=== PATIENT | female | born 1930 | race Caucasian/White ===

== ENCOUNTER 2020-09-01 16:32 | Inpatient (IN) | payer OTHER ==
[2020-09-01 16:47] VITALS: BMI 24.4
[2020-09-01] MEDS ORDERED: SODIUM CHLORIDE 0.9% 500 ML INFUS.BAG IV ONE (18:26)
[2020-09-01] MEDS ORDERED: CLINDAMYCIN 600MG PREMIX IVPB 600 MG/50 ML BAG IVPB ONE ×2 (18:45→19:25)
[2020-09-01 18:51] LABS: BASO % 0.4 % (0-2.0); EOS % 0.2 % (0-4.5); HEMATOCRIT 33.9 % (32.4-45.2); HEMOGLOBIN 10.6 GM/dL (10.7-15.3); LYMPH % 7.6 % (8-40); MCH 24.5 pg (25.7-33.7); MCHC 31.4 g/dl (32.0-36.0); MEAN CELL VOLUME 78.2 fl (80-96); MEAN PLT VOLUME 6.8 fl (7.5-11.1); NEUT % 78.8 % (42.8-82.8); PLATELET COUNT 346 10^3/uL (134-434); RBC 4.33 M/mm3 (3.60-5.2); RDW 16.9 % (11.6-15.6); WHITE BLOOD COUNT 9.8 K/mm3 (4.0-10.0)
[2020-09-01 19:03] LABS: INR 1.04 (0.83-1.09); PROTHROMBIN TIME (PATIENT) 12.6 SEC (9.7-13.0)
[2020-09-01 19:05] LABS: CHLORIDE 98 mmol/L (98-107); SODIUM 130 mmol/L (136-145)
[2020-09-01 19:06] LABS: ACTIVATED PTT 27.8 SECONDS (25.2-36.5)
[2020-09-01 19:08] LABS: ALBUMIN 2.8 g/dl (3.4-5.0); ANION GAP 11 MMOL/L (8-16); CALCIUM 8.7 mg/dL (8.5-10.1); CO2 20 mmol/L (21-32); GLUCOSE,RANDOM 114 mg/dL (74-106)
[2020-09-01 19:09] LABS: BLOOD UREA NITROGEN 38.9 mg/dL (7-18)
[2020-09-01 19:11] LABS: CREATININE 1.2 mg/dL (0.55-1.3); SGOT/AST 20 U/L (15-37); SGPT/ALT 21 U/L (13-61)
[2020-09-01 19:13] LABS: TOT PROT 6.9 g/dl (6.4-8.2)
[2020-09-01 19:14] LABS: ALK PHOS 141 U/L (45-117)
[2020-09-01] MEDS ORDERED: dilTIAZem HCL 50 MG/10 ML - 10 ML VIAL IVPUSH ONE (19:20)
[2020-09-01 19:23] LABS: BILIRUBIN,TOTAL 0.4 mg/dL (0.2-1)
[2020-09-01] MEDS ORDERED: dilTIAZem HCL 50 MG/10 ML - 10 ML VIAL ONE (19:25)
[2020-09-01] MEDS ORDERED: dilTIAZem HCL 30 MG TABLET PO ONE (19:43)
[2020-09-01 19:48] LABS: ERYTHROCYTE SEDIMENTATION RATE 62 mm/hr (0-30)
[2020-09-01] MEDS ORDERED: dilTIAZem HCL 30 MG TABLET ONE (20:04)
[2020-09-01] MEDS ORDERED: ACETAMINOPHEN INJECTION 100 ML IVPB ONE (21:01)
[2020-09-01] MEDS ORDERED: ACETAMINOPHEN 1000 MG/100 ML VIAL (NON FORMULARY) IVPB ONE (21:09)
[2020-09-01] MEDS ORDERED: MORPHINE SULFATE 2 MG/ML VIAL IVPUSH ONE (21:50)
[2020-09-01] MEDS: ZINC OXIDE/PANTHENOL/VITAMIN E 56 GM TUBE TP SCH (22:07)
[2020-09-01] MEDS ORDERED: MORPHINE SULFATE 2 MG/ML VIAL ONE ×2 (22:09→22:23)
[2020-09-01] MEDS ORDERED: morphine CARPU-JECT 2 MG/1 ML DISP.SYRIN IVPUSH ONE (22:20)
[2020-09-01] MEDS ORDERED: LORazepam 2 MG/ML SDV VIAL IVPUSH ONE (22:42)
[2020-09-01] MEDS ORDERED: SODIUM CHLORIDE 1,000 ML IV SCH (22:45)
[2020-09-01] MEDS ORDERED: LORazepam 2 MG/ML SDV VIAL ONE (22:46)
[2020-09-01 23:45] LABS: MAGNESIUM 2.5 mg/dL (1.8-2.4)
[2020-09-02] MEDS: APIXABAN 2.5 MG TABLET PO SCH ×3 (00:21→22:53)
[2020-09-02] MEDS: dilTIAZem HCL 30 MG TABLET PO SCH ×4 (00:22→17:12)
[2020-09-02] MEDS: VANCOMYCIN 1 GRAM (PRE-DOCKED) 1,000 MG/250 ML BAG IVPB SCH ×2 (00:22→12:07)
[2020-09-02] MEDS ORDERED: dilTIAZem HCL 30 MG TABLET PO SCH (06:00)
[2020-09-02] MEDS: INSULIN SLIDING SCALE (NOVOLOG) 1 VIAL SQ SCH ×4 (06:13→22:57)
[2020-09-02 08:25] LABS: HEMATOCRIT 32.3 % (32.4-45.2); HEMOGLOBIN 9.9 GM/dL (10.7-15.3); MCH 24.6 pg (25.7-33.7); MCHC 30.8 g/dl (32.0-36.0); MEAN CELL VOLUME 79.8 fl (80-96); MEAN PLT VOLUME 7.1 fl (7.5-11.1); PLATELET COUNT 303 10^3/uL (134-434); RBC 4.04 M/mm3 (3.60-5.2); RDW 16.6 % (11.6-15.6); WHITE BLOOD COUNT 9.1 K/mm3 (4.0-10.0)
[2020-09-02 08:52] LABS: CALCIUM 7.9 mg/dL (8.5-10.1)
[2020-09-02 08:53] LABS: ALBUMIN 2.3 g/dl (3.4-5.0); BLOOD UREA NITROGEN 41.8 mg/dL (7-18); MAGNESIUM 2.5 mg/dL (1.8-2.4)
[2020-09-02 08:56] LABS: CHOLESTEROL 105 mg/dL (50-200); CREATININE 1.3 mg/dL (0.55-1.3); LDL CHOLESTEROL (ONLY SJRH) 35 mg/dL (5-100); PHOSPHOROUS 3.2 mg/dL (2.5-4.9); TOT PROT 5.6 g/dl (6.4-8.2); TRIGLYCERIDES 73 mg/dL (0-150)
[2020-09-02 08:59] LABS: HDL CHOLESTEROL 50 mg/dL (40-60)
[2020-09-02 09:03] LABS: BILIRUBIN,TOTAL 0.8 mg/dL (0.2-1)
[2020-09-02] MEDS: DOCUSATE SODIUM 100 MG CAPSULE (FP) PO SCH ×2 (09:09→22:53)
[2020-09-02] MEDS: PANTOPRAZOLE 40 MG TABLET PO SCH (09:09)
[2020-09-02] MEDS: FERROUS SO4 325 MG TABLET (FP) PO SCH (09:09)
[2020-09-02] MEDS ORDERED: FERROUS SO4 325 MG TABLET (FP) PO SCH ×2 (10:00)
[2020-09-02 10:23] LABS: PREALBUMIN 12.3 mg/dl (20-40)
[2020-09-02] MEDS ORDERED: PT OWN MED DRAWER 7, Y5N ONE ×2 (11:06→13:38)
[2020-09-02] MEDS: ZINC OXIDE/PANTHENOL/VITAMIN E 56 GM TUBE TP SCH (12:41)
[2020-09-02] MEDS: ACETAMINOPHEN 1000 MG/100 ML VIAL (NON FORMULARY) IVPB PRN (12:42)
[2020-09-02] MEDS: SILVER SULFADIAZINE 1% TOP CREAM 400 GM JAR TP SCH (13:55)
[2020-09-02] MEDS: FUROSEMIDE 40 MG/4 ML INJECTABLE VIAL IVPUSH SCH (14:09)
[2020-09-02] MEDS ORDERED: PNEUMOC 13-VAL CONJ-DIP CRM/PF 0.5 ML DISP.SYRIN IM ONE (15:00)
[2020-09-02 17:30] LABS: URINE APPEARANCE CLOUDY; URINE BILIRUBIN NEGATIVE (NEGATIVE); URINE COLOR YELLOW; URINE GLUCOSE (UA) 3+ (NEGATIVE); URINE KETONE NEGATIVE (NEGATIVE); URINE LEUK ESTERASE NEGATIVE (NEGATIVE); URINE NITRITE NEGATIVE (NEGATIVE); URINE PROTEIN NEGATIVE (NEGATIVE); URINE UROBILINOGEN 0.2 mg/dL (0.2-1.0)
[2020-09-02] MEDS ORDERED: DEXTROSE 5%-WATER - 50 ML IVPB ONE (22:42)
[2020-09-02] MEDS ORDERED: ceFAZolin SODIUM 1 GM VIAL ONE (22:42)
[2020-09-02] MEDS: SENNOSIDES 8.6MG TABLET (FP) PO SCH (22:53)
[2020-09-02] MEDS: ATORVASTATIN CA 10 MG TABLET (FP) PO SCH (22:54)
[2020-09-02] MEDS: CEFAZOLIN 1 GM in DEXTROSE 5%-WATER - 1 GM/50 ML IVPB IVPB SCH (22:54)
[2020-09-02] MEDS ORDERED: VANCOMYCIN 1 GRAM (PRE-DOCKED) 1,000 MG/250 ML BAG IVPB SCH (23:30)
[2020-09-03] MEDS: dilTIAZem HCL 30 MG TABLET PO SCH ×2 (01:00→05:51)
[2020-09-03] MEDS: ACETAMINOPHEN 1000 MG/100 ML VIAL (NON FORMULARY) IVPB PRN (03:40)
[2020-09-03] MEDS: INSULIN SLIDING SCALE (NOVOLOG) 1 VIAL SQ SCH ×4 (06:10→22:32)
[2020-09-03 07:26] LABS: BASO % 0.3 % (0-2.0); EOS % 1.3 % (0-4.5); HEMATOCRIT 29.5 % (32.4-45.2); HEMOGLOBIN 9.5 GM/dL (10.7-15.3); LYMPH % 10.1 % (8-40); MCH 25.2 pg (25.7-33.7); MCHC 32.3 g/dl (32.0-36.0); MEAN CELL VOLUME 78.1 fl (80-96); MEAN PLT VOLUME 6.8 fl (7.5-11.1); MONO % 11.4 % (3.8-10.2); NEUT % 76.9 % (42.8-82.8); PLATELET COUNT 303 10^3/uL (134-434); RBC 3.77 M/mm3 (3.60-5.2); RDW 16.8 % (11.6-15.6); WHITE BLOOD COUNT 8.9 K/mm3 (4.0-10.0)
[2020-09-03 07:44] LABS: BLOOD UREA NITROGEN 31.2 mg/dL (7-18); CALCIUM 7.1 mg/dL (8.5-10.1); MAGNESIUM 2.4 mg/dL (1.8-2.4)
[2020-09-03] MEDS ORDERED: DEXTROSE 5%-WATER - 50 ML IVPB ONE ×2 (09:18→20:52)
[2020-09-03] MEDS ORDERED: ceFAZolin SODIUM 1 GM VIAL ONE ×2 (09:18→20:52)
[2020-09-03] MEDS: CEFAZOLIN 1 GM in DEXTROSE 5%-WATER - 1 GM/50 ML IVPB IVPB SCH ×2 (10:11→21:59)
[2020-09-03] MEDS: FUROSEMIDE 40 MG/4 ML INJECTABLE VIAL IVPUSH SCH (10:11)
[2020-09-03] MEDS: DOCUSATE SODIUM 100 MG CAPSULE (FP) PO SCH ×2 (10:12→22:00)
[2020-09-03] MEDS: FERROUS SO4 325 MG TABLET (FP) PO SCH (10:12)
[2020-09-03] MEDS: APIXABAN 2.5 MG TABLET PO SCH ×2 (10:12→22:00)
[2020-09-03] MEDS: PANTOPRAZOLE 40 MG TABLET PO SCH (10:12)
[2020-09-03] MEDS: SILVER SULFADIAZINE 1% TOP CREAM 400 GM JAR TP SCH (10:13)
[2020-09-03] MEDS: ZINC OXIDE/PANTHENOL/VITAMIN E 56 GM TUBE TP SCH (10:13)
[2020-09-03] MEDS ORDERED: oxyCODONE HCL 5 MG TABLET PO ONE (12:22)
[2020-09-03] MEDS: ATORVASTATIN CA 10 MG TABLET (FP) PO SCH (22:00)
[2020-09-03] MEDS: SENNOSIDES 8.6MG TABLET (FP) PO SCH (22:01)
[2020-09-04] MEDS ORDERED: oxyCODONE HCL 5 MG TABLET PO ONE (04:00)
[2020-09-04] MEDS: INSULIN SLIDING SCALE (NOVOLOG) 1 VIAL SQ SCH ×3 (07:03→16:51)
[2020-09-04 07:38] LABS: BASO % 0.7 % (0-2.0); EOS % 1.8 % (0-4.5); HEMATOCRIT 30.7 % (32.4-45.2); HEMOGLOBIN 9.6 GM/dL (10.7-15.3); LYMPH % 11.4 % (8-40); MCH 24.6 pg (25.7-33.7); MCHC 31.4 g/dl (32.0-36.0); MEAN CELL VOLUME 78.3 fl (80-96); MONO % 12.1 % (3.8-10.2); PLATELET COUNT 319 10^3/uL (134-434); RBC 3.91 M/mm3 (3.60-5.2); RDW 16.7 % (11.6-15.6); WHITE BLOOD COUNT 8.4 K/mm3 (4.0-10.0)
[2020-09-04 07:41] LABS: CALCIUM 7.4 mg/dL (8.5-10.1)
[2020-09-04 07:43] LABS: BLOOD UREA NITROGEN 25.9 mg/dL (7-18); MAGNESIUM 2.6 mg/dL (1.8-2.4)
[2020-09-04 07:45] LABS: CREATININE 0.8 mg/dL (0.55-1.3); PHOSPHOROUS 2.2 mg/dL (2.5-4.9)
[2020-09-04] MEDS: FERROUS SO4 325 MG TABLET (FP) PO SCH (08:45)
[2020-09-04] MEDS ORDERED: ceFAZolin SODIUM 1 GM VIAL ONE (09:25)
[2020-09-04] MEDS ORDERED: DEXTROSE 5%-WATER - 50 ML IVPB ONE (09:25)
[2020-09-04] MEDS: FUROSEMIDE 40 MG/4 ML INJECTABLE VIAL IVPUSH SCH (10:09)
[2020-09-04] MEDS: PANTOPRAZOLE 40 MG TABLET PO SCH (10:11)
[2020-09-04] MEDS: APIXABAN 2.5 MG TABLET PO SCH ×2 (10:11→22:18)
[2020-09-04] MEDS: DOCUSATE SODIUM 100 MG CAPSULE (FP) PO SCH ×2 (10:13→22:18)
[2020-09-04] MEDS: CEFAZOLIN 1 GM in DEXTROSE 5%-WATER - 1 GM/50 ML IVPB IVPB SCH (10:13)
[2020-09-04] MEDS: MULTIVIT-MINERALS ORAL LIQUID PO SCH (11:00)
[2020-09-04] MEDS ORDERED: MORPHINE SULFATE 2 MG/ML VIAL IVPUSH ONE (12:15)
[2020-09-04] MEDS: ASCORBIC ACID 250 MG TABLET (FP) PO SCH (13:00)
[2020-09-04] MEDS: NYSTATIN POWDER 100,000 UNITS/GM - 15 GM TOPICAL POWDER TP SCH (13:00)
[2020-09-04] MEDS: ZINC OXIDE/PANTHENOL/VITAMIN E 56 GM TUBE TP SCH (15:43)
[2020-09-04] MEDS: SILVER SULFADIAZINE 1% TOP CREAM 400 GM JAR TP SCH (15:45)
[2020-09-04] MEDS ORDERED: PT OWN MED DRAWER 7, Y5N ONE (15:58)
[2020-09-04] MEDS: ACETAMINOPHEN 325 MG TABLET (FP) PO PRN (22:14)
[2020-09-04] MEDS: oxyCODONE HCL 5 MG TABLET PO PRN (22:18)
[2020-09-04] MEDS: SENNOSIDES 8.6MG TABLET (FP) PO SCH (22:18)
[2020-09-04] MEDS: ATORVASTATIN CA 10 MG TABLET (FP) PO SCH (22:19)
[2020-09-05] MEDS ORDERED: PT OWN MED DRAWER 7, Y5N ONE (09:06)
[2020-09-05] MEDS: FUROSEMIDE 40 MG/4 ML INJECTABLE VIAL IVPUSH SCH (09:22)
[2020-09-05] MEDS: PANTOPRAZOLE 40 MG TABLET PO SCH (09:23)
[2020-09-05] MEDS: FERROUS SO4 325 MG TABLET (FP) PO SCH (09:23)
[2020-09-05] MEDS: MULTIVIT-MINERALS ORAL LIQUID PO SCH (09:31)
[2020-09-05] MEDS: DOCUSATE SODIUM 100 MG CAPSULE (FP) PO SCH ×2 (09:32→21:18)
[2020-09-05] MEDS: APIXABAN 2.5 MG TABLET PO SCH ×2 (09:32→21:18)
[2020-09-05] MEDS: ASCORBIC ACID 250 MG TABLET (FP) PO SCH (09:32)
[2020-09-05] MEDS: NYSTATIN POWDER 100,000 UNITS/GM - 15 GM TOPICAL POWDER TP SCH (09:32)
[2020-09-05] MEDS: oxyCODONE HCL 5 MG TABLET PO PRN (10:42)
[2020-09-05] MEDS: ZINC OXIDE/PANTHENOL/VITAMIN E 56 GM TUBE TP SCH (10:43)
[2020-09-05] MEDS: INSULIN SLIDING SCALE (NOVOLOG) 1 VIAL SQ SCH ×5 (11:26→21:17)
[2020-09-05] MEDS: SILVER SULFADIAZINE 1% TOP CREAM 400 GM JAR TP SCH (15:56)
[2020-09-05] MEDS: ACETAMINOPHEN 325 MG TABLET (FP) PO PRN (18:10)
[2020-09-05] MEDS: ATORVASTATIN CA 10 MG TABLET (FP) PO SCH (21:18)
[2020-09-05] MEDS: SENNOSIDES 8.6MG TABLET (FP) PO SCH (21:18)
[2020-09-05] MEDS ORDERED: MELATONIN 5 MG TABLETS PO ONE (22:48)
[2020-09-06] MEDS ORDERED: traZODone HCL 50 MG TABLET (FP) PO ONE (01:04)
[2020-09-06] MEDS: INSULIN SLIDING SCALE (NOVOLOG) 1 VIAL SQ SCH ×4 (06:13→21:55)
[2020-09-06 07:41] LABS: BLOOD UREA NITROGEN 27.7 mg/dL (7-18)
[2020-09-06 07:45] LABS: CREATININE 0.9 mg/dL (0.55-1.3)
[2020-09-06] MEDS ORDERED: PT OWN MED DRAWER 7, Y5N ONE (09:15)
[2020-09-06] MEDS: oxyCODONE HCL 5 MG TABLET PO PRN (09:41)
[2020-09-06] MEDS: DOCUSATE SODIUM 100 MG CAPSULE (FP) PO SCH ×2 (09:42→21:54)
[2020-09-06] MEDS: APIXABAN 2.5 MG TABLET PO SCH ×2 (09:42→21:54)
[2020-09-06] MEDS: FERROUS SO4 325 MG TABLET (FP) PO SCH (09:42)
[2020-09-06] MEDS: PANTOPRAZOLE 40 MG TABLET PO SCH (09:42)
[2020-09-06] MEDS: MULTIVIT-MINERALS ORAL LIQUID PO SCH (09:43)
[2020-09-06] MEDS: ASCORBIC ACID 250 MG TABLET (FP) PO SCH (09:44)
[2020-09-06] MEDS: NYSTATIN POWDER 100,000 UNITS/GM - 15 GM TOPICAL POWDER TP SCH (09:44)
[2020-09-06] MEDS: FUROSEMIDE 40 MG/4 ML INJECTABLE VIAL IVPUSH SCH (09:44)
[2020-09-06] MEDS: SILVER SULFADIAZINE 1% TOP CREAM 400 GM JAR TP SCH (09:44)
[2020-09-06] MEDS: ZINC OXIDE/PANTHENOL/VITAMIN E 56 GM TUBE TP SCH (09:45)
[2020-09-06] MEDS: ATORVASTATIN CA 10 MG TABLET (FP) PO SCH (21:54)
[2020-09-06] MEDS: SENNOSIDES 8.6MG TABLET (FP) PO SCH (21:54)
[2020-09-07] MEDS: INSULIN SLIDING SCALE (NOVOLOG) 1 VIAL SQ SCH ×4 (06:04→21:44)
[2020-09-07] MEDS: FERROUS SO4 325 MG TABLET (FP) PO SCH (08:51)
[2020-09-07] MEDS: ZINC OXIDE/PANTHENOL/VITAMIN E 56 GM TUBE TP SCH (10:19)
[2020-09-07] MEDS: MULTIVIT-MINERALS ORAL LIQUID PO SCH (10:19)
[2020-09-07] MEDS: DOCUSATE SODIUM 100 MG CAPSULE (FP) PO SCH ×2 (10:20→21:43)
[2020-09-07] MEDS: APIXABAN 2.5 MG TABLET PO SCH ×2 (10:20→21:43)
[2020-09-07] MEDS: NYSTATIN POWDER 100,000 UNITS/GM - 15 GM TOPICAL POWDER TP SCH (10:20)
[2020-09-07] MEDS: PANTOPRAZOLE 40 MG TABLET PO SCH (10:20)
[2020-09-07] MEDS: FUROSEMIDE 40 MG/4 ML INJECTABLE VIAL IVPUSH SCH (10:21)
[2020-09-07] MEDS: SILVER SULFADIAZINE 1% TOP CREAM 400 GM JAR TP SCH (10:22)
[2020-09-07] MEDS: ASCORBIC ACID 250 MG TABLET (FP) PO SCH (10:26)
[2020-09-07] MEDS ORDERED: oxyCODONE HCL 5 MG TABLET PO ONE (12:43)
[2020-09-07] MEDS ORDERED: HYDROmorphone HCL CARPU-JECT 2 MG/1 ML DISP.SYRIN SQ STA (12:46)
[2020-09-07] MEDS ORDERED: HYDROmorphone HCl 2 MG/ML VIAL SQ STA (12:50)
[2020-09-07] MEDS ORDERED: HYDROmorphone HCl 2 MG/ML VIAL ONE (12:50)
[2020-09-07 15:01] VITALS: BP 100/58; PULSE 71; TEMP 98.2
[2020-09-07] MEDS: SENNOSIDES 8.6MG TABLET (FP) PO SCH (21:43)
[2020-09-07] MEDS: ATORVASTATIN CA 10 MG TABLET (FP) PO SCH (21:43)
== END 2020-09-08 00:04 | DRG 300 ==
LOC: JER 16:32 → JERBED 18:02 → J4W 23:32 → J4S 09-05 14:45
PROVIDERS: ADMIT Internal Medicine; ATTEND Internal Medicine
DX: I83.218 Varicose veins of right lower extremity with both ulcer of other part of lower extremity and inflammation (principal); E46 Unspecified protein-calorie malnutrition; L97.818 Non-pressure chronic ulcer of other part of right lower leg with other specified severity; L97.828 Non-pressure chronic ulcer of other part of left lower leg with other specified severity; I48.91 Unspecified atrial fibrillation; I10 Essential (primary) hypertension; E78.5 Hyperlipidemia, unspecified; E11.620 Type 2 diabetes mellitus with diabetic dermatitis; F32.9 Major depressive disorder, single episode, unspecified; I83.228 Varicose veins of left lower extremity with both ulcer of other part of lower extremity and inflammation; Z79.4 Long term (current) use of insulin; E77.8 Other disorders of glycoprotein metabolism
CPT/HCPCS: 36415; 71045-TC-FY; 80048; 80053; 80061; 81003; 82043; 82550; 82570; 82962; 83036; 83605; 83721; 83735; 84100; 84134; 84156; 84443; 84484; 85025; 85027; 85610; 85651; 85730; 86140; 86850; 86900; 86901; 87040; 87070; 87186; 87205; 90670; 93005; 93010; 93306-TC; 97116-GP; 97162-GP; 99291; C9803; J0131; U0003; U0005